=== PATIENT | female | born 1985 | race Caucasian/White ===

== ENCOUNTER 2023-03-16 22:14 | Observation (INO) ==
[2023-03-16] MEDS ORDERED: CLINDAMYCIN/D5W 900 MG/50 ML BAG IV STA (22:40)
[2023-03-16] MEDS ORDERED: SODIUM CHLORIDE 0.9% 1000ML 1,000 ML IV ONE (22:40)
[2023-03-16] MEDS ORDERED: KETOROLAC TROMETHAMINE 15 MG/ML VIAL IV STA (22:40)
[2023-03-16] MEDS ORDERED: dexAMETHasone**PF** 10 MG/ML VIAL IV ONE (22:40)
--- NOTE | 2023-03-16 22:53 | Emergency Department Note ---
History of Present Illness General Chief complaint: Facial Injury/Pain Stated complaint: TOOTH PAIN RT SIDE Time Seen by Provider: 03/16/23 22:29 History of Present Illness This 37-year-old with poor dentition presents the ER for worsening facial swelling and fevers. Patient saw the dentist today and was placed on clindamycin. The swelling got worse and patient came in. Patient states she has poor dentition. Patient denies chest pain, dyspnea, cough, congestion, trismus. Tetanus is reported as current. Home Medications Medication Instructions Recorded Confirmed Type clindamycin HCl 300 mg capsule 300 mg PO QID 03/16/23 03/16/23 History Allergies Allergy/AdvReac Type Severity Reaction Status Date / Time Penicillins Allergy Severe SHORT OF Verified 03/16/23 23:12 BREATH/HIVES Sulfa (Sulfonamide Allergy Severe SHORT OF Verified 03/16/23 23:12 Antibiotics) BREATH/HIVES Past Med/Surg History Social History Smoking Status: Never smoker Preferred Language: Georgian Feels Safe at Home: Yes Review of Systems A total of 10 systems reviewed and were otherwise negative Physical Exam Vital Signs Vital Signs - 24 hr 03/16/23 22:21 03/16/23 23:37 Temperature 36.3 C L Temperature Source Temporal Artery Scan Pulse Rate 96 H Pulse Rate [Finger] 89 Respiratory Rate 18 16 Respiratory Effort / Characteristics Non-Labored Non-Labored Spontaneous Respiratory Depth Normal Normal Blood Pressure 120/84 Blood Pressure [Right Arm] 94/62 L Blood Pressure Mean 96 Blood Pressure Mean [Right Arm] 72 Pulse Oximetry 97 97 Oxygen Delivery Method Room Air Room Air Sepsis Recent Fever Within 48 Hours Yes Sepsis New/Unexplained Change in Mental Status N/A Sepsis Action Taken by Nursing No Action Required VITALS: Vitals are noted on the nurse's note and reviewed by myself. Vital signs stable. GENERAL: Pleasant female, in no acute distress, nondiaphoretic, well-developed well-nourished. SKIN: Right lower jawline erythematous and edematous concerning for facial cellulitis with dental abscess, the rest of the skin was without rashes, erythema, edema, or bruising. There is no tenting of the skin. Capillary reflex less than 2 seconds. HEAD: Normocephalic atraumatic. EARS: External auditory canals clear, tympanic membranes pearly nguyen without erythema or effusion bilaterally. EYES: Pupils equal round and reactive to light and accommodation. Conjunctivae without injection, sclerae without icterus. Extraocular movements intact. NOSE: Patent, turbinates without inflammation or discharge. No sinus tenderness. MOUTH: Mucous membranes moist. Pharynx without erythema or exudate. Uvula midline. Airway patent. Tongue does not deviate. No floor the mouth tenderness Dental exam: Poor dentition, right lower gumline erythematous and edematous co ncerning for abscess, no signs of Klever's NECK: Supple without nuchal rigidity. Right-sided cervical shotty o lymphadenopathy. No thyromegaly. Cervical spine is nontender. No JVD. HEART: Regular rate and rhythm LUNGS: Clear to auscultation bilaterally without wheezes, rales or rhonchi. No retractions or accessory muscle use. ABDOMEN: Positive bowel sounds x 4. Normal tympanic percussion. Soft, nontender, without masses or organomegaly. Nunez sign negative. No guarding or rebound tenderness. No CVA tenderness MUSCULOSKELETAL: No muscle atrophy, erythema, or edema noted. NEURO: Patient was alert and oriented to person place and time. Normal sensation to light and sharp touch. No focal neurological deficits. Course Administered Medications Discontinued Medications Dexamethasone Sodium Phosphate (DexamethasonePf 10 Mg/Ml Vial) 10 mg IV NOW ONE Stop: 03/16/23 22:41 Last Admin: 03/16/23 23:02 Dose: 10 mg Documented By: ANETTE Sodium Chloride (Nss 1000ml) 1,000 mls @ 999 mls/hr IV .Q1H1M ONE Stop: 03/16/23 23:40 Last Infusion: 03/17/23 00:47 Dose: 0 mls/hr Documented By: Admin: 03/16/23 23:36 Dose: 999 mls/hr Documented By: ANETTE Clindamycin Phosphate (Cleocin/D5w) 300 mg in 50 mls @ 100 mls/hr IV NOW STA Stop: 03/16/23 23:29 Last Infusion: 03/17/23 00:27 Dose: 0 mls/hr Documented By: Admin: 03/16/23 23:36 Dose: 100 mls/hr Documented By: ANETTE Clindamycin Phosphate (Cleocin/D5w) 600 mg in 50 mls @ 100 mls/hr IV NOW STA Stop: 03/16/23 23:30 Last Infusion: 03/17/23 00:27 Dose: 0 mls/hr Documented By: Admin: 03/16/23 23:36 Dose: 100 mls/hr Documented By: ANETTE Ioversol (Optiray 320 100ml) 92 ml IV ONCE ONE Stop: 03/16/23 23:33 Last Admin: 03/16/23 23:33 Dose: 92 ml Documented By: HELLEN Ketorolac Tromethamine (Ketorolac Tromethamine 15 Mg/Ml Vial) 10 mg IV NOW STA Stop: 03/16/23 22:41 Last Admin: 03/16/23 23:01 Dose: 10 mg Documented By: ANETTE Medical Decision Making Medical Records Attestation: I reviewed the patient's medical records. Home Medications Current Medication List: was personally reviewed by me Laboratory Data Attestation: I reviewed the patient's lab results. 03/16/23 22:54 03/16/23 22:54 Lab Results 03/16/23 03/16/23 03/16/23 Range/Units 22:54 22:54 22:54 WBC 8.42 (4.8-10.8) K/ul RBC 4.11 L (4.20-5.40) M/uL Hgb 13.1 (12.0-16.0) g/dl Hct 38.7 (37.0-47.0) % MCV 94.2 (80.0-100.0) fL MCH 31.9 (25.0-34.0) pg MCHC 33.9 (32.0-36.0) g/dL RDW Std Deviation 44.6 (36.4-46.3) fL RDW Coeff of Dominic 12.9 (11.5-14.5) % Plt Count 244 (130-400) K/uL MPV 10.7 (9.4-12.4) fL Immature Gran % (Auto) 0.2 % Neut % (Auto) 60.3 % Lymph % (Auto) 24.8 % Steele % (Auto) 10.3 % Eos % (Auto) 3.9 % Baso % (Auto) 0.5 % Neut # (Auto) 5.07 (1.40-6.50) K/uL Lymph # (Auto) 2.09 (1.2-3.4) K/uL Steele # (Auto) 0.87 H (0.11-0.59) K/uL Eos # (Auto) 0.33 (0-0.50) K/uL Baso # (Auto) 0.04 (0-0.2) K/uL Immature Gran # (Auto) 0.02 (0.01-0.20) K/uL Sodium 137 (136-145) mmol/L Potassium 4.3 (3.5-5.1) mmol/L Chloride 101 (98-107) mmol/L Carbon Dioxide 29 (21-32) mmol/L Anion Gap 7 (3-11) BUN 19 (6-23) mg/dl Creatinine 0.99 (0.6-1.2) mg/dl Est Cr Clr Drug Dosing 79.3 ml/min Est GFR ( Amer) 83.2 ml/min Est GFR (Non-Af Amer) 71.8 ml/min BUN/Creatinine Ratio 19.2 (10-20) Glucose 94 (70-99(Fasting)) mg/dl Calcium 9.3 (8.6-10.3) mg/dl Total Bilirubin 0.4 (0.2-1.0) mg/dl AST 15 (13-39) U/L ALT 16 (7-52) U/L Alkaline Phosphatase 44 (34-104) U/L Total Protein 7.7 (6.0-8.3) gm/dl Albumin 4.2 (3.4-5.0) gm/dl Globulin 3.5 (2.5-4.0) gm/dl Albumin/Globulin Ratio 1.2 (0.9-2) HCG, Qual Negative (Negative) SARS-CoV-2, RNA, NAAT (NEGATIVE) 03/16/23 Range/Units 23:46 WBC (4.8-10.8) K/ul RBC (4.20-5.40) M/uL Hgb (12.0-16.0) g/dl Hct (37.0-47.0) % MCV (80.0-100.0) fL MCH (25.0-34.0) pg MCHC (32.0-36.0) g/dL RDW Std Deviation (36.4-46.3) fL RDW Coeff of Dominic (11.5-14.5) % Plt Count (130-400) K/uL MPV (9.4-12.4) fL Immature Gran % (Auto) % Neut % (Auto) % Lymph % (Auto) % Steele % (Auto) % Eos % (Auto) % Baso % (Auto) % Neut # (Auto) (1.40-6.50) K/uL Lymph # (Auto) (1.2-3.4) K/uL Steele # (Auto) (0.11-0.59) K/uL Eos # (Auto) (0-0.50) K/uL Baso # (Auto) (0-0.2) K/uL Immature Gran # (Auto) (0.01-0.20) K/uL Sodium (136-145) mmol/L Potassium (3.5-5.1) mmol/L Chloride (98-107) mmol/L Carbon Dioxide (21-32) mmol/L Anion Gap (3-11) BUN (6-23) mg/dl Creatinine (0.6-1.2) mg/dl Est Cr Clr Drug Dosing ml/min Est GFR ( Amer) ml/min Est GFR (Non-Af Amer) ml/min BUN/Creatinine Ratio (10-20) Glucose (70-99(Fasting)) mg/dl Calcium (8.6-10.3) mg/dl Total Bilirubin (0.2-1.0) mg/dl AST (13-39) U/L ALT (7-52) U/L Alkaline Phosphatase (34-104) U/L Total Protein (6.0-8.3) gm/dl Albumin (3.4-5.0) gm/dl Globulin (2.5-4.0) gm/dl Albumin/Globulin Ratio (0.9-2) HCG, Qual (Negative) SARS-CoV-2, RNA, NAAT NEGATIVE (NEGATIVE) Imaging Data Attestation: I personally reviewed and interpreted this imaging study as follows: Radiologist's Impression: Face CT 03/16/23 22:42 Exam(s): CT FACIAL With Contrast IV Amt: 92ML OPTIRAY 350 EXAM: CT Maxillofacial With Intravenous Contrast CLINICAL HISTORY: Reason for exam: right lower jaw infx. TECHNIQUE: Axial computed tomography images of the face with intravenous contrast. CTDI is 36.26 mGy and DLP is 878.54 mGy-cm. Automated exposure control was utilized for the study. A dose lowering technique was utilized adhering to the principles of ALARA. CONTRAST: Patient received 92ML OPTIRAY 350 of IV contrast COMPARISON: No relevant prior studies available. FINDINGS: Bones/joints: No acute fracture. Soft tissues: Inflammation involving the soft tissues overlying the right mandible. Orbits: Unremarkable. Sinuses: Unremarkable. No air-fluid levels. Dental: Apical lucency involving the right first mandibular molar. Additionally adjacent to the anterior right mandible, there is an abscess measuring 0.6 cm in thickness adjacent to the right first premolar. Large dental caries involving the right second maxillary molar and left first mandibular molar. IMPRESSION: Apical lucency involving the right first mandibular molar. Additionally adjacent to the anterior right mandible, there is an abscess measuring 0.6 cm in thickness adjacent to the right first premolar. Large dental caries involving the right second maxillary molar and left first mandibular molar. Electronically signed by: Felipe Sawant M.D. 03/17/23 01:22 AM MDM Narrative Prior records reviewed and summarized as above. Triage Nursing notes reviewed. Additional history obtained from family. The patient's history was concerning for mouth problem. Differential diagnosis: Etiologies such as cellulitis, abscess, Klever's angina, gingivitis, dental cavity, dental decay, dental infection, as well as others were entertained.. Physical examination: As above ER treatment provided: Cleocin, Decadron, Toradol IV were ordered On reassessment the patient felt better. Diagnostics interpreted by me: The labs Independently Interpreted by myself revealed no worrisome leukocytosis, negative hCG Negative COVID Imaging studies: Facial CT concerning for multiple dental caries and dental abscess per my independent interpretation and report was reviewed as above that was read by radiology Consultation: A consultation was placed with oral surgery Dr. Jj and recommends medical admission and he will see the patient in the morning. A consultation placed with the hospitalist. The case was discussed and d iagnostics were reviewed. The patient was evaluated in the ER for further treatment. This appears to be facial cellulitis with dental infection. Patient reports fevers at home. The swelling is gotten much worse. Medicine is consulted and oral surgery was consulted. Patient be admitted to the medical service. Oral surgery will see the patient in the morning and is requesting n.p.o. at [facility]. Patient is agreeable. Patient was admitted in stable condition. By the evaluation outlined above emergent etiologies such as Klever's angina, as well as others were deemed relatively unlikely. The pt informed about the findings as listed above. All questions were answered and pleased with the treatment. The chart was completed utilizing [employer] Speech voice recognition software. G rammatical errors, random word insertions, pronoun errors, and incomplete sentences are an occassional consequence of this system due to software limitations, ambient noise, and hardware issues. Any formal questions or concerns about the content, text, or information contained within the body of th is dictation should be directly addressed to the physician human services assistant for clarification. Impression & Plan Facial cellulitis, Abscess, dental Discharge Plan Visit Data Chief Complaint: Facial Injury/Pain Stated Complaint: TOOTH PAIN RT SIDE ED Provider: Natalia Dan ED Midlevel Provider: Shila Guzman Discharge Problem: Facial cellulitis, Abscess, dental Patient Disposition: Admitted As Inpatient Condition: Good Forms Stand Alone Forms: [facility] Prescriptions Prescriptions: No Action clindamycin HCl 300 mg capsule 300 mg PO QID Rx Instructions: STARTED 03/16/23 FOR 10 DAYS. Referrals Referrals: Aida Katz PA-C [Primary Care Provider] -
[2023-03-16] MEDS ORDERED: [UNRECOGNIZED DRUG - REMARK] IV STA (23:00)
[2023-03-16] MEDS ORDERED: [UNRECOGNIZED DRUG - OTHER] IV STA (23:01)
[2023-03-16 23:09] LABS: Basophils # (auto) 0.04 K/uL (0-0.2); Basophils % (auto) 0.5 %; Eosinophils # (auto) 0.33 K/uL (0-0.50); Eosinophils % (auto) 3.9 %; Hematocrit (blood only) 38.7 % (37.0-47.0); Hemoglobin 13.1 g/dl (12.0-16.0); Immature Granulocytes # (auto) 0.02 K/uL (0.01-0.20); Immature Granulocytes % (auto) 0.2 %; Lymphocytes # (auto) 2.09 K/uL (1.2-3.4); Lymphocytes % (auto) 24.8 %; Mean Corpuscular Hemoglobin 31.9 pg (25.0-34.0); Mean Corpuscular Hgb Conc 33.9 g/dL (32.0-36.0); Mean Corpuscular Volume 94.2 fL (80.0-100.0); Mean Platelet Volume 10.7 fL (9.4-12.4); Monocytes # (auto) 0.87 K/uL (0.11-0.59); Monocytes % (auto) 10.3 %; Neutrophils # (auto) 5.07 K/uL (1.40-6.50); Neutrophils % (auto) 60.3 %; Platelet Count 244 K/uL (130-400); RDW Coefficient of Variation 12.9 % (11.5-14.5); RDW Standard Deviation 44.6 fL (36.4-46.3); Red Blood Count 4.11 M/uL (4.20-5.40); White Blood Count 8.42 K/ul (4.8-10.8)
[2023-03-16 23:23] LABS: Pregnancy Test, Serum Negative (Negative)
[2023-03-16 23:29] LABS: Albumin Globulin Ratio 1.2 (0.9-2); Albumin Level 4.2 gm/dl (3.4-5.0); BUN Creatinine Ratio 19.2 (10-20); Bilirubin,Total 0.4 mg/dl (0.2-1.0); Calcium 9.3 mg/dl (8.6-10.3); Creatinine Clr Calc Pharmacy 79.3 ml/min; Est GFR (African American) 83.2 ml/min; Est GFR (Non-African American) 71.8 ml/min; Globulin 3.5 gm/dl (2.5-4.0); Potassium 4.3 mmol/L (3.5-5.1); Total Protein 7.7 gm/dl (6.0-8.3)
[2023-03-16] MEDS ORDERED: OPTIRAY 320 100ml IV ONE (23:32)
--- NOTE | 2023-03-17 00:55 | History & Physical Report ---
Date of Service March 17, 2023 Assessment & Plan (1) Abscess, dental: Plan: 37yo female with no significant past medical history presenting with progressive redness, pain and swelling of right lower jaw. CT with apical lucency of the right first mandibular molar with a 0.6cm abscess adjacent to the right first premolar. Also with large dental caries involving the right 2nd maxillary molar and L first mandibular molar. -Admit to medical -Continue Clindamycin 900mg IV TID -Tylenol PRN -Ibuprofen PRN -OMFS Consultation appreciated - will keep patient NPO for possible OR abscess drainage in AM F/E/N - LR at 80mL/hr x 2L, electrolytes WNL, NPO Ppx- Low risk for DVT, encourage ambulation as tolerated Code - Full Dispo - Admit to medical History of Present Illness Chief Complaint: right facial swelling Primary Care Provider: Aida Katz PA-C Lorena Hunter is a 37yo female with no significant past medical history presenting with worsening pain, redness and swelling of the right face. Patient has several broken teeth and cavities - right mandibular molars. She has not seen a dentist for some time. She has had intermittent right facial swelling in the past that would resolve with Tylenol and Aspirin. Over the last day she has had progressive pain and swelling of the right lower jaw and the development of "a knot" on the right lower jaw. She was seen by a dentist in [place] today and started on Clindamycin. She did take 900mg of Clindamycin prior to arrival. Came to the ER due to progressive swelling and pain. She denies sore throat or difficulty swallowing. Has had some subjective fevers and chills as well as some worsening anxiety and some mild nausea. In the ER she is afebrile, HD stable, NAD. ER Course: Dexamethasone Toradol Clindamycin NSS Allergies Allergy/AdvReac Type Severity Reaction Status Date / Time Penicillins Allergy Severe SHORT OF Verified 03/16/23 23:12 BREATH/HIVES Sulfa (Sulfonamide Allergy Severe SHORT OF Verified 03/16/23 23:12 Antibiotics) BREATH/HIVES Home Medications Medication Instructions Recorded Confirmed Type clindamycin HCl 300 mg capsule 300 mg PO QID 03/16/23 03/16/23 History Past Med/Surg History Medical History (Updated 03/17/23 @ 01:44 by Nicole Barber DO) No significant past medical history Surgical History (Updated 03/17/23 @ 01:44 by Nicole Barber DO) History of ankle surgery Family History (Updated 03/17/23 @ 01:45 by Nicole Barber DO) Other Cancer Diabetes Kidney disease Social History Smoking Status: Never smoker Preferred Language: Gibraltarian Feels Safe at Home: Yes Review of Systems Review of Systems: All systems reviewed & are unremarkable except as noted in HPI & below Physical Exam Physical Exam: General: patient resting comfortably, NAD, non-toxic in appearance, AA&O x 4 Skin: warm, dry, intact, no rashes or lesions HEENT: NC/AT, PERRL, EOMI, anicteric sclera, conjunctiva without injection, external ear normal to inspection and nontender, nares patent, moist mucus membranes, poor dentition, no oropharyngeal lesions, neck supple, trachea midline, no thyromegaly, no JVD, swelling/redness and pain of right lower jaw. Some mild tender cervical LAD. No trismus. Voice normal. Heart: +S1/S2, regular, no m/r/g Lungs: equal air entry bilaterally, no rales/rhonchi/wheezes Abd: +BS, soft, NT/ND, no masses/organomegaly/ascites Ext: warm, 2+ pulses in UE/LE bilaterally, no clubbing/cyanosis or edema Neuro: nonfocal, patient AA&O x 4, speech intact, no facial droop, moving all extremities on command with equal strength 5/5 Results & Data Results & Data Vital Signs (Past 12 Hours) Vital Signs Temp Pulse Pulse Resp BP BP Pulse Ox 03/16/23 23:37 89 16 94/62 L 97 03/16/23 22:21 36.3 C L 96 H 18 120/84 97 O2 Del Method 03/16/23 23:37 Room Air 03/16/23 22:21 Room Air Laboratory Results Laboratory Results WBC 8.42 K/ul (4.8-10.8) 03/16/23 22:54 RBC 4.11 M/uL (4.20-5.40) L 03/16/23 22:54 Hgb 13.1 g/dl (12.0-16.0) 03/16/23 22:54 Hct 38.7 % (37.0-47.0) 03/16/23 22:54 MCV 94.2 fL (80.0-100.0) 03/16/23 22:54 MCH 31.9 pg (25.0-34.0) 03/16/23 22:54 MCHC 33.9 g/dL (32.0-36.0) 03/16/23 22:54 RDW Std Deviation 44.6 fL (36.4-46.3) 03/16/23 22:54 RDW Coeff of Dominic 12.9 % (11.5-14.5) 03/16/23:54 Plt Count 244 K/uL (130-400) 03/16/23 22:54 MPV 10.7 fL (9.4-12.4) 03/16/23 22:54 Immature Gran % (Auto) 0.2 % 03/16/23 22:54 Neut % (Auto) 60.3 % 03/16/23 22:54 Lymph % (Auto) 24.8 % 03/16/23 22:54 Finney % (Auto) 10.3 % 03/16/23 22:54 Eos % (Auto) 3.9 % 03/16/23 22:54 Baso % (Auto) 0.5 % 03/16/23 22:54 Neut # (Auto) 5.07 K/uL (1.40-6.50) 03/16/23 22:54 Lymph # (Auto) 2.09 K/uL (1.2-3.4) 03/16/23 22:54 Finney # (Auto) 0.87 K/uL (0.11-0.59) H 03/16/23 22:54 Eos # (Auto) 0.33 K/uL (0-0.50) 03/16/23 22:54 Baso # (Auto) 0.04 K/uL (0-0.2) 03/16/23 22:54 Immature Gran # (Auto) 0.02 K/uL (0.01-0.20) 03/16/23 22:54 Sodium 137 mmol/L (136-145) 03/16/23 22:54 Potassium 4.3 mmol/L (3.5-5.1) 03/16/23 22:54 Chloride 101 mmol/L (98-107) 03/16/23 22:54 Carbon Dioxide 29 mmol/L (21-32) 03/16/23 22:54 Anion Gap 7 (3-11) 03/16/23 22:54 BUN 19 mg/dl (6-23) 03/16/23 22:54 Creatinine 0.99 mg/dl (0.6-1.2) 03/16/23 22:54 Est Cr Clr Drug Dosing 79.3 ml/min 03/16/23 22:54 Est GFR ( Amer) 83.2 ml/min 03/16/23 22:54 Est GFR (Non-Af Amer) 71.8 ml/min 03/16/23 22:54 BUN/Creatinine Ratio 19.2 (10-20) 03/16/23 22:54 Glucose 94 mg/dl (70-99(Fasting)) 03/16/23 22:54 Calcium 9.3 mg/dl (8.6-10.3) 03/16/23 22:54 Total Bilirubin 0.4 mg/dl (0.2-1.0) 03/16/23 22:54 AST 15 U/L (13-39) 03/16/23 22:54 ALT 16 U/L (7-52) 03/16/23 22:54 Alkaline Phosphatase 44 U/L (34-104) 03/16/23 22:54 Total Protein 7.7 gm/dl (6.0-8.3) 03/16/23 22:54 Albumin 4.2 gm/dl (3.4-5.0) 03/16/23 22:54 Globulin 3.5 gm/dl (2.5-4.0) 03/16/23 22:54 Albumin/Globulin Ratio 1.2 (0.9-2) 03/16/23 22:54 HCG, Qual Negative (Negative) 03/16/23 22:54 SARS-CoV-2, RNA, NAAT NEGATIVE (NEGATIVE) 03/16/23 23:[address] 03/16/23 22:42 Exam(s): CT FACIAL With Contrast IV Amt: 92ML OPTIRAY 350 EXAM: CT Maxillofacial With Intravenous Contrast CLINICAL HISTORY: Reason for exam: right lower jaw infx. TECHNIQUE: Axial computed tomography images of the face with intravenous contrast. CTDI is 36.26 mGy and DLP is 878.54 mGy-cm. Automated exposure control was utilized for the study. A dose lowering technique was utilized adhering to the principles of ALARA. CONTRAST: Patient received 92ML OPTIRAY 350 of IV contrast COMPARISON: No relevant prior studies available. FINDINGS: Bones/joints: No acute fracture. Soft tissues: Inflammation involving the soft tissues overlying the right mandible. Orbits: Unremarkable. Sinuses: Unremarkable. No air-fluid levels. Dental: Apical lucency involving the right first mandibular molar. Additionally adjacent to the anterior right mandible, there is an abscess measuring 0.6 cm in thickness adjacent to the right first premolar. Large dental caries involving the right second maxillary molar and left first mandibular molar. IMPRESSION: Apical lucency involving the right first mandibular molar. Additionally adjacent to the anterior right mandible, there is an abscess measuring 0.6 cm in thickness adjacent to the right first premolar. Large dental caries involving the right second maxillary molar and left first mandibular molar. Electronically signed by: Felipe Sawant M.D. 03/17/23 01:22 AM PG Care Time/CCT Total # of Minutes Spent Total Time Spent with Patient: Total time spent is greater than 50% in coordination of care (as documented) at patient's floor/unit and/or counseling patient: Coding Level of Care Code 42157 INT INP/OBS CARE 2/55MIN Diagnoses Abscess, dental K04.7
--- NOTE | 2023-03-17 01:23 | CT Scan Report ---
Exam(s): CT FACIAL With Contrast IV Amt: 92ML OPTIRAY 350 EXAM: CT Maxillofacial With Intravenous Contrast CLINICAL HISTORY: Reason for exam: right lower jaw infx. TECHNIQUE: Axial computed tomography images of the face with intravenous contrast. CTDI is 36.26 mGy and DLP is 878.54 mGy-cm. Automated exposure control was utilized for the study. A dose lowering technique was utilized adhering to the principles of ALARA. CONTRAST: Patient received 92ML OPTIRAY 350 of IV contrast COMPARISON: No relevant prior studies available. FINDINGS: Bones/joints: No acute fracture. Soft tissues: Inflammation involving the soft tissues overlying the right mandible. Orbits: Unremarkable. Sinuses: Unremarkable. No air-fluid levels. Dental: Apical lucency involving the right first mandibular molar. Additionally adjacent to the anterior right mandible, there is an abscess measuring 0.6 cm in thickness adjacent to the right first premolar. Large dental caries involving the right second maxillary molar and left first mandibular molar. IMPRESSION: Apical lucency involving the right first mandibular molar. Additionally adjacent to the anterior right mandible, there is an abscess measuring 0.6 cm in thickness adjacent to the right first premolar. Large dental caries involving the right second maxillary molar and left first mandibular molar. Electronically signed by: Felipe Sawant M.D. 03/17/23 01:22 AM
[2023-03-17] MEDS ORDERED: ONDANSETRON INJ 2 MG/ML 2 ML VIAL IV PRN (01:59)
[2023-03-17] MEDS: LACTATED RINGER'S 1,000 ML IV SCH ×2 (02:23→15:00)
[2023-03-17] MEDS: ACETAMINOPHEN 325 MG TAB PO PRN ×3 (07:36→22:30)
--- NOTE | 2023-03-17 08:24 | Hospitalist Progress Note ---
Date of Service March 17, 2023 Assessment & Plan (1) Abscess, dental: Plan 37yo female with no significant past medical history presenting with progressive redness, pain and swelling of right lower jaw. #Dental abscess - CT showed 0.6cm abscess adjacent to R first molar, large caries of R 2nd maxillary molar and L 1st mandibular molar -Tylenol PRN -Ibuprofen PRN -OMFS consulted- pt scheduled for Dr Mathur in [place] on March 21 for the extraction of teeth 2,19,30, ok with D/C tomorrow morning with continuation of clindamycin oral when discharged (pt has rx already, will take 300mg q8h) and will rx vicodin 5/325 for pain after discharge from hospital -Continue Clindamycin 900mg IV TID - plan for D/C tomorrow Upon discharge tomorrow, will provide pt with a note since she missed her LSAT exam and otherwise would need to pay a $200 fee to reschedule it. F/E/N - LR at 80mL/hr x 2L, electrolytes WNL, NPO Ppx- Low risk for DVT, encourage ambulation as tolerated Code - Full Dispo - Admit to medical Admission and Anticipated Discharge Date Admission Date: March 17, 2023 Supervising Physician Co-Signing Physician Notes I personally examined the patient and verified lamb points of history and exam, discussed case, and agree with decision making and plan documented by Dr. Mccray. Patient with improvement of pain on IV clindamycin. Evaluated by oral maxillofacial surgery, will continue IV antibiotics for the interim and transition to oral antibiotics, patient has outpatient I&D scheduled, will likely discharge home tomorrow. Subjective Pt is a 37 yo female with no past medical history who presents to the hospital on 03/16/23 for dental abscess. Today, pt states that her pain has greatly improved compared to when she came in, but that she is still a bit tender. She was able to eat breakfast without nausea or vomiting and states that she otherwise feels well. No further questions or complaints at this time. She states she was able to sleep well last night. She lives at home with her and 8 year old son. Review of Systems Review of Systems: Constitutional: denies fever, chills, Cardio: denies chest pain, palpitations Resp: denies shortness of breath, cough Physical Exam Physical Exam: General:Alert and oriented, no acute distress, HEENT: Normocephalic, moist oral mucosa, large dental caries/plaque noted on the 1st/2nd mandibular molar on the right side Cardio: Regular rate and rhythm, no murmur, Resp:Lungs clear to auscultation b/l, no wheezes or rhonchi, GI: Soft and nontender, nondistended, bowel sounds active Skin: Warm, pink, dry, Psych: Mood-affect congruence. Results & Data Results & Data Vital Signs (Past 12 Hours) Vital Signs Temp Pulse Pulse Pulse Resp BP BP 03/17/23 08:03 36.8 C 78 15 106/69 03/17/23 01:45 36.8 C 76 18 116/68 03/17/23 01:30 03/17/23 01:00 77 14 112/71 03/16/23 23:37 89 16 94/62 L 03/16/23 22:21 36.3 C L 96 H 18 120/84 Pulse Ox O2 Del Method 03/17/23 08:03 97 Room Air 03/17/23 01:45 98 Room Air 03/17/23 01:30 Room Air 03/17/23 01:00 98 Room Air 03/16/23 23:37 97 Room Air 03/16/23 22:21 97 Room Air Resident Activity Tracking Resident Involvement: Resident Care Provided Care Provided: Adult Hospital Medicine
[2023-03-17] MEDS: CLINDAMYCIN/D5W 600 MG/50 ML BAG IV SCH ×2 (08:30→16:18)
--- NOTE | 2023-03-17 09:14 | Oral/Maxillofacial Consult ---
Date of Consultation March 17, 2023 Assessment & Plan (1) No significant past medical history: (2) Facial cellulitis: (3) Abscess, dental: History of Present Illness Attending Physician: Vicki Valentine, History of Present Illness Oral Maxillofacial Surgery Exam Present Complaint: I have pain/swelling from my infected lower right molar Symptoms have been ongoing for about 24 hours bt last night developed intense pain and swelling that prompted to go to the ER. As a result of the swelling she was admitted for IV antibiotics and pain management Oral Exam: Finding--Carious # 30, # 2 and 19 fractured # 31 Gingival swelling right side The submandibular swelling is very soft and resolving--there is no drainable pus for an I&D. Bilateral milka are present. Imaging: Soft tissue: floor of the mouth, tongue, hard/soft palate, posterior pharyngeal area all with in normal limits, no pathology or abnormal findings noted. Slight puffiness right side of the jaw -resolving Oral Care: Overall oral care is fair Occlusion: Class I TMJ exam: No pop, clicking, pain, good ROM, No history of TMJ injury or dysfunction Periodontal exam: Mild gingival tissue inflammation with evidence of early periodontal pathology. Head/Neck exam: Neck is supple, FROM, Able to extend and flex neck w/o difficulty, no masses, no abnormalities, no airway issues, no evidence of sleep apnea. Treatment Plan: Lorena has an appointment with Dr Mathur`s office in [place] on March 21 for the extraction of teeth , Given that her pain is well controlled, swelling is resolving, no drainable pus and that she has established follow up my plan is as follows: Continue IV antibiotics for today and discharge early Sunday morning She has Clindamycin 300 mg at home and suggested she take 300 mg q 8 hr I will Rx Vicodin 5/325 for pain control upon D/C See Dr Mathur on SundayMar 21 for dental extractions as planned May have diet today May be D/C Sunday--Please call Dr Jj is any questions. I reviewed the treatment plan and consent with the patient Understanding was expressed. Time was given for questions regarding the surgery, risks and post op care. The following teeth are decayed and fractured and removal is indicated KEITH: 2,,30 Surgery is already set up with Dr Mathur for March 21 in [place]. Allergies Allergy/AdvReac Type Severity Reaction Status Date / Time Penicillins Allergy Severe SHORT OF Verified 03/16/23 23:12 BREATH/HIVES Sulfa (Sulfonamide Allergy Severe SHORT OF Verified 03/16/23 23:12 Antibiotics) BREATH/HIVES Home Medications Medication Instructions Recorded Confirmed Type clindamycin HCl 300 mg capsule 300 mg PO QID 03/16/23 03/16/23 History Patient History Medical History No significant past medical history Surgical History History of ankle surgery Family History Other Cancer Diabetes Kidney disease Social History Smoking Status: Never smoker Hx Alcohol Use: Yes Alcohol type: wine Hx Substance Use: No Preferred Language: Armenian Communication Ability: Effective Aboriginal Ceremonial Celebrant Required: No Beliefs That Will Affect Care: None Current Living Situation: Family Feels Safe at Home: Yes Assistive Devices: None Results & Data Vital Signs (Past 12 Hours) Vital Signs Temp Pulse Pulse Pulse Resp BP BP 03/17/23 08:03 36.8 C 78 15 106/69 03/17/23 01:45 36.8 C 76 18 116/68 03/17/23 01:30 03/17/23 01:00 77 14 112/71 03/16/23 23:37 89 16 94/62 L 03/16/23 22:21 36.3 C L 96 H 18 120/84 Pulse Ox O2 Del Method 03/17/23 08:03 97 Room Air 03/17/23 01:45 98 Room Air 03/17/23 01:30 Room Air 03/17/23 01:00 98 Room Air 03/16/23 23:37 97 Room Air 03/16/23 22:21 97 Room Air PG Care Time/CCT Total # of Minutes Spent Total Time Spent with Patient: Total time spent is greater than 50% in coordination of care (as documented) at patient's floor/unit and/or counseling patient: Coding Level of Care Code 43189 IN/OBS CONSULT LVL 2,35M Diagnoses No significant past medical history Facial cellulitis L03.211 Abscess, dental K04.7
[2023-03-17] MEDS: IBUPROFEN 600 MG TAB PO PRN ×2 (10:40→20:42)
[2023-03-18] MEDS: CLINDAMYCIN/D5W 600 MG/50 ML BAG IV SCH ×2 (00:03→08:13)
[2023-03-18] MEDS: IBUPROFEN 600 MG TAB PO PRN (05:54)
--- NOTE | 2023-03-18 07:24 | Discharge Summary ---
Date of Service March 18, 2023 Admission HPI Per Admitting Provider Lorena Hunter is a 37yo female with no significant past medical history presenting with worsening pain, redness and swelling of the right face. Patient has several broken teeth and cavities - right mandibular molars. She has not seen a dentist for some time. She has had intermittent right facial swelling in the past that would resolve with Tylenol and Aspirin. Over the last day she has had progressive pain and swelling of the right lower jaw and the development of "a knot" on the right lower jaw. She was seen by a dentist in [place] today and started on Clindamycin. She did take 900mg of Clindamycin prior to arrival. Came to the ER due to progressive swelling and pain. She denies sore throat or difficulty swallowing. Has had some subjective fevers and chills as well as some worsening anxiety and some mild nausea. In the ER she is afebrile, HD stable, NAD. ER Course: Dexamethasone Toradol Clindamycin NSS Admission Exam Per Admitting Provider General: patient resting comfortably, NAD, non-toxic in appearance, AA&O x 4 Skin: warm, dry, intact, no rashes or lesions HEENT: NC/AT, PERRL, EOMI, anicteric sclera, conjunctiva without injection, external ear normal to inspection and nontender, nares patent, moist mucus membranes, poor dentition, no oropharyngeal lesions, neck supple, trachea midline, no thyromegaly, no JVD, swelling/redness and pain of right lower jaw. Some mild tender cervical LAD. No trismus. Voice normal. Heart: +S1/S2, regular, no m/r/g Lungs: equal air entry bilaterally, no rales/rhonchi/wheezes Abd: +BS, soft, NT/ND, no masses/organomegaly/ascites Ext: warm, 2+ pulses in UE/LE bilaterally, no clubbing/cyanosis or edema Neuro: nonfocal, patient AA&O x 4, speech intact, no facial droop, moving all extremities on command with equal strength 5/5 Principal Diagnosis Dental abscess. Discharge Exam General:Alert and oriented, no acute distress, HEENT: Normocephalic, moist oral mucosa, large dental caries/plaque noted on the 1st/2nd mandibular molar on the right side Cardio: Regular rate and rhythm, no murmur, Resp:Lungs clear to auscultation b/l, no wheezes or rhonchi, GI: Soft and nontender, nondistended, bowel sounds active Skin: Warm, pink, dry, Psych: Mood-affect congruence. Discharge Data Allergies Allergy/AdvReac Type Severity Reaction Status Date / Time Penicillins Allergy Severe SHORT OF Verified 03/16/23 23:12 BREATH/HIVES Sulfa (Sulfonamide Allergy Severe SHORT OF Verified 03/16/23 23:12 Antibiotics) BREATH/HIVES Consultations 03/17/23 00:52 Consult Oromaxillofacial Surgery Stat ED Decision to Admit Stat 03/17/23 01:59 Consult Oromaxillofacial Surgery Routine Ordered Studies 03/16/23 22:42 CT facial bones w con Stat Hospital Course (1) Abscess, dental: Plan 37yo female with no significant past medical history presenting with progressive redness, pain and swelling of right lower jaw. #Dental abscess - CT showed 0.6cm abscess adjacent to R first molar, large caries of R 2nd maxillary molar and L 1st mandibular molar -OMFS consulted- pt scheduled for Dr Mathur in [place] on March 21 for the extraction of teeth 2,19,30, ok with D/C tomorrow morning with continuation of clindamycin oral when discharged (pt has rx already, will take 300mg q8h) and will rx vicodin 5/325 for pain after discharge from hospital - pt to continue tylenol and iburpofen prn - pt to take oral clindamycin daily until seen on March 21 - pt given a note for her LSAT exam that she missed while hospitalized Disposition: Home Total Time Total Time Spent Total Time Spent (In Minutes): As per attending attestation. Discharge Plan Discharge Items Patient Disposition: Home - Self-Care Reason For Visit: RIGHT FACIAL ABSCESS Discharge Diagnosis: Dental abscess Condition on Discharge: Good Activity: Resume your previous activity Lifting: Gradually increase as tolerated Bathing: No limitations Exercise/Sports: Gradually increase as tolerated Driving/Machine Use: Resume 1 day after discharge Weightbearing: Full weightbearing Non-emergency contact: Surgeon Call non-emergency contact if: your symptoms worsen, your pain is worsening, your temperature is above 101.5, your wound has increased redness, your wound has increased drainage and your wound pain has increased Follow-up/Referrals: Tello Reyna, DMD [Physician] - (PATIENT ALREADY HAS AN APPOINTMENT WITH ORAL SURGERY IN [place] ON Sunday03/21/23. DR REYNA DOES NOT NEED TO SEE THE PATIENT A FOLLOW UP) Aida Katz PA-C [Primary Care Provider] - Diet: Regular Addtl Attending Provider Instructions: ADDITIONAL ACTIVITY RECOMMENDATIONS: * Fraser teeth after every meal. It is very important to keep your mouth clean to prevent infection. * it is very important to keep well hydrated, this prevents fever SPECIAL CARE INSTRUCTIONS: Bring your X Rays to your appointment with Dr. Mathur on Mar 21 Take the clindamycin 1 every 8 hr Take the pain Meds only if Motrin or Tylenol is not effective Please call if your symptoms worsen before the surgical appointment on Mar 21 Pending Studies at Discharge: No Stand-Alone Forms: [facility] [employer] [facility], Work/School Release Medications and DC Order Prescriptions: Continued hydrocodone-acetaminophen 5-325 mg tablet 1 tab PO Q4H PRN (Reason: pain) Qty: 10 0RF clindamycin HCl 300 mg capsule 300 mg PO QID Rx Instructions: STARTED 03/16/23 FOR 10 DAYS. Discharge Orders: Discharge Order (Routine); Ordered 03/18/23 Ordered By: Laquita Mccray Admission Data Admit Date/Time: 03/17/23 00:54 Attending Provider: Vicki Valentine Admit Provider: Nicole Barber Primary Care Provider: Aida Katz Other Providers: Tello Reyna ; Nicole Barber Other Interventions: Discharge Summary Assessment (RN) Last Done: 03/18/23 11:16 Supervising Physician Co-Signing Physician Notes I personally examined the patient and verified lamb points of history and exam, discussed case, and agree with decision making and plan documented by Dr. Mccray. Patient stable for discharge, has outpatient pain medication and antibiotics prescribed. Appointment scheduled for extraction of molars and abscess I&D. Resident Activity Tracking Resident Involvement: Resident Care Provided Care Provided: Adult Hospital Medicine
[2023-03-18] MEDS: ACETAMINOPHEN 325 MG TAB PO PRN (11:35)
== END 2023-03-18 12:03 | disposition home or self-care (01) | DRG 158 ==
LOC: ED 22:14 → SUATTDRO 03-17 00:54 → INTOOBSV 03-17 00:54 → 3W 03-17 00:54